=== PATIENT | male | born 1995 | race Caucasian/White ===

== ENCOUNTER 2018-04-21 15:39 | Emergency (ER) | payer MEDICAID ==
[~2018-04-21] VITALS: Ht 175.3 cm; Wt 80.0 kg
[2018-04-21 15:44] VITALS: BP 119/79
[2018-04-21] MEDS ORDERED: IBUP-2029 PO (15:48)
[2018-04-21] MEDS ORDERED: ACET-2708 PO (15:48)
== END 2018-04-21 18:29 | disposition home or self-care (01) ==
LOC: ER 18:22
DX: G44.209 Tension-type headache, unspecified, not intractable (principal); F41.9 Anxiety disorder, unspecified
CPT/HCPCS: 99282